=== PATIENT | female | born 2000 | race Hispanic/Latino ===

== ENCOUNTER 2024-01-12 15:12 | Outpatient (CLI) | payer OTHER | END 2024-01-12 15:13 | disposition home or self-care (01) | LOC: SCSRAD 15:12 | PROVIDERS: ATTEND Family Medicine | DX: M54.50 Low back pain, unspecified (principal); M25.571 Pain in right ankle and joints of right foot; M25.572 Pain in left ankle and joints of left foot; M25.532 Pain in left wrist; M25.531 Pain in right wrist | CPT/HCPCS: 72110; 72202 ==